=== PATIENT | male | born 1985 | race Caucasian/White ===

== ENCOUNTER 2016-11-13 18:46 | Emergency (ER) | payer BC ==
--- NOTE | 2016-11-13 19:50 | ER PHYSICIAN DOCUMENTATION ---
Physician Documentation [facility] Name:Rommel Swanson Age:31 yrs Sex:Male :1985 Arrival Date:11/13/2016 Time:18:46 Bed5 Private MD: Lele Iqbal Disposition: 11/13/16 19:44 Discharged to Home/Self Care. Impression: Olecranon Bursitis, Cellulitis. - Condition is Good. - Discharge Instructions: BURSITIS, CELLULITIS. - Prescriptions for Clindamycin HCl 300 mg Oral - take 1 capsule by ORAL route every 8 hours for 7 days; 21 capsule. - Medical Reconciliation form form. - Follow up: Private Physician; When: As needed; Reason: Continuance of care. - Problem is new. - Symptoms have improved. HPI: 11/13 19:10 This 31 yrs old Male presents to ER via Walk In with complaints of Arm jm Problem. 19:10 The patient or guardian complains of pain, a rash, swelling. The complaints affect the jm right elbow. Onset: The symptom(s)/episode began/occurred yesterday, and became worse today. Treatment prior to arrival includes: over the counter medications, NSAIDS, Tylenol. Associated signs and symptoms: Pertinent positives: fever. Historical: - Allergies: No known drug Allergies; - Tetanus: < 10 years. - Ebola Screening: : Patient negative for fever greater than or equal to 101.5 degrees Fahrenheit, and additional compatible Ebola Virus Disease symptoms. Patient denies exposure to infectious person. Patient denies travel to an Ebola-affected area in the 21 days before illness onset. No symptoms or risks identified at this time. . - Immunization history: Flu Vaccine None. - Social history: Smoking status: Patient states was never smoker of tobacco. ROS: 19:10 MS/extremity: Positive for pain, rash, swelling, tenderness. jm 19:10 Skin: Positive for rash, swelling. 19:10 All other systems are negative. Exam: 19:11 Constitutional: The patient appears alert, awake. jm 19:11 Musculoskeletal/extremity: Extremities: grossly normal except: noted in the right elbow: pain, swelling, tenderness, ROM: full active range of motion, full passive range of motion. 19:11 Skin: cellulitis, that is moderate, well demarcated, consistent with cellulitis. 19:11 Neuro: Mentation: is normal, Memory: is normal. Vital Signs: 18:51 BP 123 / 74; Pulse 76; Resp 16; Temp 99.8; Pulse Ox 95% on R/A; Weight 77.11 kg; Height lc 6 ft. (182.88 cm); Pain 1/10; 19:49 BP 133 / 74; Pulse 78; Resp 18; Temp 98.8(O); Pulse Ox 95% ; bw2 18:51 Body Mass Index 23.06 (77.11 kg, 182.88 cm) [facility]: 19:01 Patient medically screened. 19:12 Differential diagnosis: cellulitis, infected bursitis. Data reviewed: vital signs, nurses notes, and as a result, I will discharge patient. Counseling: I had a detailed discussion with the patient and/or guardian regarding: the historical points, exam findings, and any diagnostic results supporting the discharge/admit diagnosis, the need for outpatient follow up, with the patient's primary care provider. ED course: Will give a round of IV clinda since pt's had a fever today and then DC home w clinda PO. . Dispensed Medications: 19:16 Drug: Clindamycin 600 mg; Route: IVPB; Site: left antecubital; bw2 Signatures: Lele Mcbride MD MD jm Wisely, Beth bw2
--- NOTE | 2016-11-13 19:50 | ER NURSING DOCUMENTATION ---
Nurse's Notes [facility] Name:Rommel Swanson Age:31 yrs Sex:Male :1985 Arrival Date:11/13/2016 Time:18:46 Bed5 Private MD: Diagnosis:Olecranon Bursitis;Cellulitis Presentation: 11/13 18:49 Acuity: POOJA 3 18:55 Presenting complaint: Patient states: right elbow reddness that started with pain 1 bw2 week ago. Transition of care: patient was not received from another setting of care. 18:55 Method Of Arrival: Walk In 2 Triage Assessment: 18:56 General: Appears in no apparent distress, Behavior is appropriate for age. Pain: Denies bw2 pain. Historical: - Allergies: No known drug Allergies; - Tetanus: < 10 years. - Ebola Screening: : Patient negative for fever greater than or equal to 101.5 degrees Fahrenheit, and additional compatible Ebola Virus Disease symptoms. Patient denies exposure to infectious person. Patient denies travel to an Ebola-affected area in the 21 days before illness onset. No symptoms or risks identified at this time. . - Immunization history: Flu Vaccine None. - Social history: Smoking status: Patient states was never smoker of tobacco. Screenin:57 Infectious Disease Risk None. Abuse screen: Denies threats or abuse. Nutritional 2 screening: No deficits noted. Assessment: 18:56 See Triage Assessment done by same RN. bw2 Vital Signs: 18:51 BP 123 / 74; Pulse 76; Resp 16; Temp 99.8; Pulse Ox 95% on R/A; Weight 77.11 kg; Height 6 ft. (182.88 cm); Pain 1/10; 19:49 BP 133 / 74; Pulse 78; Resp 18; Temp 98.8(O); Pulse Ox 95% ; bw2 18:51 Body Mass Index 23.06 (77.11 kg, 182.88 cm) ED Course: 18:48 Patient arrived in ED. [facility] 18:49 Lia Emanuel, RN is Primary Nurse. 18:49 Triage completed. 18:57 Valuables Remains with patient. bw2 19:01 Lele Mcbride MD is Attending Physician. 19:16 Inserted peripheral IV: 20 gauge in left antecubital area. bw2 Administered Medications: 19:16 Drug: Clindamycin 600 mg; Route: IVPB; Site: left antecubital; bw2 Outcome: 19:44 Discharge ordered by . jimbo 19:49 Discharged to home ambulatory, with family. bw2 19:49 Condition: good 19:49 Discharge Assessment: Patient awake, alert and oriented x 3. No cognitive and/or functional deficits noted. Patient verbalized understanding of disposition instructions. 19:49 Discharge instructions given to patient, Instructed on discharge instructions, follow up and referral plans. medication usage, Demonstrated understanding of instructions, medications, Prescriptions given X 1. 19:50 Patient left the ED. bw2 Signatures: Lia Emanuel, PHUC RN Lele Conti MD MD jm Chew, Amelia, Reg Reg arc Wisely, Beth bw2
[2016-11-13] MEDS ORDERED: CLINDAMYCIN HCL 150 MG CAPSULE PO ONE (20:01)
== END 2016-11-13 19:50 | disposition home or self-care (01) ==
LOC: ER 18:46
DX: M70.21 Olecranon bursitis, right elbow (principal); L03.114 Cellulitis of left upper limb; R50.9 Fever, unspecified
CPT/HCPCS: 96374; 99283